=== PATIENT | male | born 1960 | race Caucasian/White ===

== ENCOUNTER 2019-05-21 11:30 | Inpatient (IN) | payer MEDICARE ==
--- NOTE | 2019-05-21 12:10 | HP ---
SUPERVISING PHYSICIAN: King Tillman M.D. CHIEF COMPLAINT: Right sided facial pain. HISTORY OF PRESENT ILLNESS: This is a 58 year-old male patient that had some swelling and pain in the right jaw that started about 7 to 8 days ago. He also had some fever in that jaw during the early days of that jaw pain. On the he went to the Emergency Room and was found to have a swollen parotid gland. His CT showed a cystic versus solid benign or malignant lesion in the right parotid gland. The patient was informed and instructed to see his regular doctor to followup for fine needle aspiration. He went to see Nazanin Medina at [facility] today and his symptoms had worsened as well as the swelling in that right jaw. He was having a difficult time eating and the pain was radiating down to the right side of his neck and across to his left jaw. Nazanin Medina called me as well as Dr. Jhon Oakes, radiologist, who recommended that he have a fine needle biopsy under ultrasound. I spoke with Dr. Penn, Infectious Diseases physician in [place], and she suggested that the patient should be on at least 72 hours of vancomycin and Unasyn, and that he could be reevaluated after 72 hours of IV antibiotics. He was directly admitted to the hospital. His vital signs on admission showed temperature 98.1 with pulse rate 67, blood pressure 136/85, respiratory rate 20, O2 saturation 96%. WBCs were 5 with hemoglobin 16.6 and hematocrit 49.1. ESR was 3. Coagulation studies were unremarkable. Electrolytes were within normal limits. Serum osmolality was 274.6. Liver enzymes were also unremarkable. Blood cultures were done. A chest x-ray was completed that showed prominent heart without congestive failure. PAST MEDICAL HISTORY: 1. Enlarged prostate. 2. Gastroesophageal reflux disease. 3. Chronic chest pain on Ranexa. 4. Hyperlipidemia. 5. Hypertension. 6. 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 PAST SURGICAL HISTORY: 1. Right ankle surgery. 2. Carpal tunnel surgery. 3. Bilateral hand surgery. 4. Shoulder/neck surgery times 2. 5. Hernia surgery at 3 year old. 6. [place] teeth extraction. 7. Cardiac stent in 2016. 8. Two skin lesion removals. OUTPATIENT MEDICATIONS: 1. Amlodipine. 2. Low dose aspirin. 3. Atorvastatin. 4. B complex vitamins. 5. Carvedilol. 6. Duloxetine. 7. Famotidine. 8. Lisinopril. 9. Melatonin. 10. Myrbetriq. 11. Ranexa. ALLERGIES: NO KNOWN ALLERGIES SOCIAL HISTORY: He moved to [place] about 3 months ago. He is living in a hotel room at the [facility]. He recently moved from [place], [place] where his daughter lives. He has been there for 2 years. He denies any tobacco, ETOH or illicit drug use. REVIEW OF SYSTEMS: GENERAL: Positive for fever and fatigue. Negative for weight changes. HEENT: Negative for vision changes or sore throat. See the History of Present Illness. RESPIRATORY: Negative for shortness of breath, coughing, wheezing. CARDIAC: Negative for chest pain, palpitations or tachycardia. GASTROINTESTINAL: Positive for nausea. Negative for vomiting, constipation or diarrhea. GENITOURINARY: Negative for hematuria, dysuria or polyuria. SKIN: Negative for lesions or rashes. NEUROLOGIC: Positive for headache and dizziness. Negative for seizures. PHYSICAL EXAMINATION: VITAL SIGNS: Temperature 98.2, heart rate 71, blood pressure 142/70, respiratory rate 22, O2 sat 96% on room air. GENERAL: This is a 58 year-old male patient who is lying in his hospital bed. He is in no acute distress. HEENT: Normocephalic and atraumatic. His right jaw is warm to touch as well as tender to palpation. It is edematous and erythematous. NECK: Supple without mass. It is tender to palpation on the right lateral neck and he does have some lymphadenopathy. RESPIRATORY: Essentially clear to auscultation bilaterally. CHEST: There is equal rise and fall of the chest with inspiration and expiration. CARDIOVASCULAR: Regular rate and rhythm. GASTROINTESTINAL: Abdomen is soft, nondistended, non-tender. Bowel sounds are positive. EXTREMITIES: No clubbing, cyanosis or edema. NEUROLOGIC: He is awake, alert and oriented times three. Cranial nerves II-XII are grossly intact. SKIN: Warm and dry. LYMPHATICS: Right anterior cervical lymphadenopathy. LABORATORY: Labs and films are as per the History of Present Illness. ASSESSMENT: 1. Right parotitis concerning for cystic versus benign versus malignant lesion of the right parotid gland. 2. Gastroesophageal reflux disease. 3. Chronic chest pain on Ranexa. 4. Hypertension. 5. History of arteriovenous malformation 10 years ago with stroke-like symptoms resulting in fdc hospitalization and resulting disability. 6. Hyperlipidemia. PLAN: I have admitted the patient to the hospital. I have initiated the Unasyn and vancomycin per Pharmacy protocol. I have also put him on a PPI for ulcer prophylaxis and Lovenox for DVT prophylaxis. He is scheduled for a fine needle biopsy per Dr. Jhon Oakes tomorrow. I will make him NPO overnight. Will have lab in the morning and I will also get his home medications restarted. Will continue his IV antibiotics for 72 hours and at that time will followup with Dr. Penn to see if any further antibiotics are needed or what oral medications he should go home with, especially if he clinically improves. Will continue to monitor closely and follow as needed. #[id number] [facility]
[2019-05-21] MEDS ORDERED: ACETAMINOPHEN 325 MG TAB PO PRN (12:20)
[2019-05-21] MEDS ORDERED: SODIUM CHLORIDE 0.9% (FLUSH) 10 ML SYG IV PRN (12:20)
[2019-05-21] MEDS ORDERED: ALBUTEROL SULFATE 2.5 MG/3 ML VIAL NEB PRN (12:20)
[2019-05-21] MEDS ORDERED: DEXTROSE 50% 25 GM/50 ML SYG IV PRN (12:26)
[2019-05-21] MEDS ORDERED: GLUCAGON INJ 1 MG VIAL SUBCU PRN (12:26)
--- NOTE | 2019-05-21 13:27 | RAD ---
EXAM DESCRIPTION: Chest,2 Views CLINICAL HISTORY: copd COMPARISON: None TECHNIQUE: PA/lateral FINDINGS: There is no acute appearing cardiac or pulmonary abnormality. Heart size is prominent with normal pulmonary vascularity. No pleural effusion or pneumothorax. Lungs are clear with no consolidating infiltrate. Lateral view shows intact sternum and spurring in the T-spine. IMPRESSION: Prominent heart without congestive failure Electronically signed by: Arsen Reinoso MD 05/21/2019 1:25 PM CDT
[2019-05-21] MEDS: IV SET AND CAP CHANGE INJ INJ SCH (14:59)
[2019-05-21] MEDS: IPRATROPIUM/ALBUTEROL 3 ML VIAL INH SCH ×2 (16:20→20:32)
[2019-05-21] MEDS ORDERED: INSULIN LISPRO 100 UNITS/ML PEN SUBCU SCH (16:30)
[2019-05-21] MEDS: ENOXAPARIN SODIUM 40 MG/0.4 ML SYG SUBCU SCH (17:03)
[2019-05-21] MEDS ORDERED: VANCOMYCIN PER PHARMACY INJ SCH (17:30)
[2019-05-21] MEDS ORDERED: MELATONIN 3 MG TAB PO PRN (17:51)
[2019-05-21] MEDS ORDERED: AMPICILLIN & SULBACTAM SODIUM 3 GM VIAL ONE ×2 (18:27→19:58)
[2019-05-21] MEDS: AMPICILLIN & SULBACTAM SODIUM 3 GM in SODIUM CHL 0.9% 100ML MINI-BAG 100 ML IVPB SCH ×2 (18:33→23:08)
[2019-05-21] MEDS ORDERED: CARVEDILOL 12.5 MG TAB ONE (19:56)
[2019-05-21] MEDS ORDERED: RANOLAZINE 500 MG TAB PO ONE (19:56)
[2019-05-21] MEDS ORDERED: ATORVASTATIN 20 MG TAB PO ONE (19:56)
[2019-05-21] MEDS ORDERED: SODIUM CHL 0.9% 100ML MINI-BAG 100 ML IVPB ONE (19:57)
[2019-05-21] MEDS ORDERED: PANTOPRAZOLE SODIUM IV 40 MG VIAL ONE (20:00)
[2019-05-21] MEDS: RANEXA 1000 MG PO SCH (20:23)
[2019-05-21] MEDS: SODIUM CHLORIDE 0.9% (FLUSH) 10 ML SYG IV SCH (20:24)
[2019-05-21] MEDS: HYDROcodone 5MG/APAP 325MG 1 EA TAB PO PRN (20:25)
[2019-05-21] MEDS ORDERED: CARVEDILOL 12.5 MG PO SCH (21:00)
[2019-05-21] MEDS ORDERED: ATORVASTATIN CALCIUM 80 MG PO SCH (21:00)
[2019-05-22] MEDS ORDERED: SODIUM CHL 0.9% 100ML MINI-BAG 100 ML IVPB ONE ×4 (01:00→20:01)
[2019-05-22] MEDS ORDERED: AMPICILLIN & SULBACTAM SODIUM 3 GM VIAL ONE ×4 (01:00→20:02)
[2019-05-22] MEDS: AMPICILLIN & SULBACTAM SODIUM 3 GM in SODIUM CHL 0.9% 100ML MINI-BAG 100 ML IVPB SCH ×4 (05:13→23:10)
[2019-05-22] MEDS: PANTOPRAZOLE SODIUM IV 40 MG VIAL IV SCH (06:13)
[2019-05-22] MEDS: IPRATROPIUM/ALBUTEROL 3 ML VIAL INH SCH ×2 (07:31→22:51)
[2019-05-22] MEDS ORDERED: VANCOMYCIN HCL INJ 1,000 MG VIAL IVPB ONE ×2 (08:44→20:02)
[2019-05-22] MEDS ORDERED: SODIUM CHLORIDE 0.9% 500ML 500 ML ONE ×2 (08:44→20:01)
[2019-05-22] MEDS: VANCOMYCIN HCL INJ 1,750 MG in SODIUM CHLORIDE 0.9% 500ML 500 ML IVPB SCH ×2 (08:54→20:28)
[2019-05-22] MEDS: amLODIPine BESYLATE 5 MG TAB PO SCH (11:44)
[2019-05-22] MEDS: CARVEDILOL 12.5 MG TAB PO SCH ×2 (11:44→21:13)
[2019-05-22] MEDS: LISINOPRIL 10 MG TAB PO SCH (11:44)
[2019-05-22] MEDS: ASPIRIN (ENTERIC COATED) 81 MG TAB PO SCH (11:44)
[2019-05-22] MEDS: DULoxetine HCL 30 MG CAP PO SCH (11:44)
[2019-05-22] MEDS: RANEXA 1000 MG PO SCH ×2 (11:45→21:14)
[2019-05-22] MEDS: MYRBETRIQ 50 MG PO SCH (11:45)
[2019-05-22] MEDS: SODIUM CHLORIDE 0.9% (FLUSH) 10 ML SYG IV SCH ×2 (11:45→21:14)
[2019-05-22] MEDS ORDERED: KCL 20MEQ/0.45% NS 1,000 ML IVS ONE (13:21)
[2019-05-22] MEDS: HYDROcodone 5MG/APAP 325MG 1 EA TAB PO PRN (13:32)
--- NOTE | 2019-05-22 16:13 | US ---
EXAM DESCRIPTION: Parotid: ULTRASOUND. CLINICAL HISTORY: 58 years Male parotid gland abscess right. Scanning for ultrasound guided drainage. COMPARISON: CT scan of the neck with IV contrast 05/16/2019. TECHNIQUE: Transcutaneous scanning: Bello-scale and Doppler modes.. Technically difficult study due to anatomy of right mandible and right external ear FINDINGS: Right parotid gland is visualized and heterogeneous. The mass was not visualized scanning anterior to the ear. Scanning posterior to the inferior, a hypoechoic mass is noted on the posterior aspect of the parotid gland measuring 6.5 x 3.8 mm with internal echoes. Posterior acoustic enhancement. Nonvascular. IMPRESSION: Possible abscess versus complicated cyst posterior aspect the right parotid gland. Nonvascular. Smaller compared to the posterior right parotid gland mass seen on the CT scan. The size and position prevents technically adequate aspiration or drainage. The CT scan will be repeated in 3 days after a course of IV antibiotics. ` COMMUNICATION: The critical value was discussed directly by phone with NAOMY Adams at approximately 1115 hours, on 05/22/2019. Electronically signed by: Jhon Oakes MD 05/22/2019 4:10 PM CDT
[2019-05-22] MEDS: ENOXAPARIN SODIUM 40 MG/0.4 ML SYG SUBCU SCH (18:42)
--- NOTE | 2019-05-22 19:17 | PN ---
DATE: 05/22/19 SUPERVISING PHYSICIAN: King Tillman M.D. SUBJECTIVE: The patient is sitting up in bed. He has just returned from his ultrasound. We discussed his plan of care that he would be in the hospital until Tuesday morning for IV antibiotics as recommended by Dr. Penn, Infectious Diseases in [place]. He continues to have some pain in that right jaw and I have encouraged him to ask for his pain medications. Otherwise he has no complaints of nausea, vomiting, diarrhea, constipation, shortness of breath or chest pain. OBJECTIVE: VITAL SIGNS: Temperature 98, heart rate 58, blood pressure 148/87, respiratory rate 16, O2 sat 94% on room air. HEENT: The right jaw continues to be very warm to touch as well as tender to palpation. It is erythematous and edematous. It is mostly unchanged since yesterday except the tender seems to be improved. RESPIRATORY: Essentially clear to auscultation bilaterally. CARDIAC: Regular rate and rhythm. GASTROINTESTINAL: Abdomen is soft, nondistended, non- tender. Bowel sounds are positive. NEUROLOGIC: He is awake, alert and oriented times three. LABORATORY: WBCs are 4.2, hemoglobin 16.5, hematocrit 48.9. Electrolytes are within normal limits. Liver panel is unremarkable. Preliminary blood cultures show no growth. Parotid ultrasound: They were unable to do the fine needle biopsy, but the sonogram shows possible abscess versus complicated cyst posterior aspect of the right parotid gland. Nonvascular. Smaller compared to the posterior right parotid gland mass seen on CT scan. The size and position prevents technically adequate aspiration or drainage. The CT scan will be repeated in 3 days after a course of IV antibiotics. All other labs and films have been reviewed via the EMR. ASSESSMENT: 1. Right parotitis concerning for cystic versus benign versus malignant lesion of the right parotid gland. 2. Gastroesophageal reflux disease. 3. Chronic chest pain on Ranexa. 4. Hypertension. 5. History of arteriovenous malformation 10 years ago with stroke-like symptoms resulting in intermediate card tender hospitalization and resulting disability. 6. Hyperlipidemia. PLAN: We will continue present supportive care. He will continue with Unasyn and vancomycin as per recommendations by Dr. Penn, Infectious Diseases physician in [place]. She recommended that it be for 72 hours. After speaking with Dr. Oakes, radiologist, we will reevaluate his clinical presentation on [place] morning. After administration of his IV antibiotics, will do a CT of the parotid gland with contrast to determine improvement in addition to his clinical presentation. I will hold on any labs at this time. Will continue to monitor closely and follow as needed. #[id number] [facility]
[2019-05-22] MEDS ORDERED: RANOLAZINE 500 MG TAB PO ONE (20:06)
[2019-05-22] MEDS: ATORVASTATIN 20 MG TAB PO SCH (21:13)
[2019-05-23] MEDS ORDERED: AMPICILLIN & SULBACTAM SODIUM 3 GM VIAL ONE ×4 (03:32→19:00)
[2019-05-23] MEDS ORDERED: SODIUM CHL 0.9% 100ML MINI-BAG 100 ML IVPB ONE ×4 (03:32→18:59)
[2019-05-23] MEDS: AMPICILLIN & SULBACTAM SODIUM 3 GM in SODIUM CHL 0.9% 100ML MINI-BAG 100 ML IVPB SCH ×4 (05:11→22:58)
[2019-05-23] MEDS: PANTOPRAZOLE SODIUM IV 40 MG VIAL IV SCH (06:15)
[2019-05-23] MEDS: IPRATROPIUM/ALBUTEROL 3 ML VIAL INH SCH (07:58)
[2019-05-23] MEDS ORDERED: SODIUM CHLORIDE 0.9% 500ML 0 ML ONE ×2 (08:12→08:20)
[2019-05-23] MEDS ORDERED: VANCOMYCIN HCL INJ 1,000 MG VIAL IVPB ONE ×5 (08:13→19:00)
[2019-05-23] MEDS ORDERED: SODIUM CHLORIDE 0.9% 500ML 500 ML ONE ×3 (08:21→18:59)
[2019-05-23] MEDS: VANCOMYCIN HCL INJ 1,750 MG in SODIUM CHLORIDE 0.9% 500ML 500 ML IVPB SCH ×2 (08:28→20:08)
[2019-05-23] MEDS: LISINOPRIL 10 MG TAB PO SCH (08:30)
[2019-05-23] MEDS: RANOLAZINE 500 MG TAB PO SCH ×2 (08:30→20:08)
[2019-05-23] MEDS: ASPIRIN (ENTERIC COATED) 81 MG TAB PO SCH (08:31)
[2019-05-23] MEDS: MYRBETRIQ 50 MG PO SCH (08:31)
[2019-05-23] MEDS: amLODIPine BESYLATE 5 MG TAB PO SCH (08:31)
[2019-05-23] MEDS: DULoxetine HCL 30 MG CAP PO SCH (08:31)
[2019-05-23] MEDS: CARVEDILOL 12.5 MG TAB PO SCH ×2 (08:31→20:08)
[2019-05-23] MEDS: SODIUM CHLORIDE 0.9% (FLUSH) 10 ML SYG IV SCH ×2 (08:34→20:10)
[2019-05-23] MEDS: HYDROcodone 5MG/APAP 325MG 1 EA TAB PO PRN ×2 (12:01→20:14)
--- NOTE | 2019-05-23 13:55 | PN ---
SUPERVISING PHYSICIAN: King Tillman MD DATE: 05/23/19 SUBJECTIVE: The patient notes he is still having quite a bit of pain. He denied any significant trismus as he was able to open his mouth for exam. He has had no complaints of any shortness of breath or difficulty with respirations. He feels like maybe the swelling has gone down some, but again it is very painful. He does have some nausea and we discussed using some Zofran. He has also started to have a little bit of diarrhea and we discussed starting him on a probiotic. OBJECTIVE: VITAL SIGNS: Temperature 98.3. Pulse 61. Blood pressure 115/71. Respiratory rate 16. Saturation 95% on room air. Weight 117.8 kg. GENERAL: The patient appears to be resting comfortably in no acute distress. He is alert. HEENT: Right jaw is showing some swelling, but today right compared to left is decreased. He does continue to show some mild erythema and tenderness to palpation. Oral mucous membranes are pink, most without any lesions. There is no drainage. CHEST: Lung sounds are clear to auscultation bilaterally. HEART: Regular rate and rhythm. ABDOMEN: Obese, but soft and nontender. Positive bowel sounds. EXTREMITIES: No edema. NEUROLOGIC: Alert and oriented times three. LABORATORY: CBC was not repeated today. Chemistries stable yesterday, so no new labs. RADIOLOGY: No additional radiographic studies. ASSESSMENT: 1. Right parotitis concerning for cystic versus benign versus malignant lesion of the right parotid gland, showing some improvement with parenteral antibiotic. 2. Gastroesophageal reflux disease, stable. 3. Chronic chest pain on Ranexa, with no recurrence of chest pain. 4. Hypertension, stable. 5. 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 6. Hyperlipidemia. PLAN: Based on recommendations from Dr. Penn, we will continue with Unasyn and vancomycin for a total course of 72 hours which will put him complete on Tuesday morning. After final administration of IV antibiotics on Tuesday, the plan is to do a CT of the parotid gland with contrast so any improvement can be determined compared to admission. We will continue to hold labs as they have been fairly stable. We will continue to monitor and treat as needed until he can transition to outpatient management. #[id number] [facility]
[2019-05-23] MEDS: ENOXAPARIN SODIUM 40 MG/0.4 ML SYG SUBCU SCH (16:51)
[2019-05-23] MEDS: ATORVASTATIN 20 MG TAB PO SCH (20:08)
[2019-05-24] MEDS ORDERED: SODIUM CHL 0.9% 100ML MINI-BAG 100 ML IVPB ONE ×4 (05:07→19:13)
[2019-05-24] MEDS ORDERED: AMPICILLIN & SULBACTAM SODIUM 3 GM VIAL ONE ×4 (05:08→19:14)
[2019-05-24] MEDS: AMPICILLIN & SULBACTAM SODIUM 3 GM in SODIUM CHL 0.9% 100ML MINI-BAG 100 ML IVPB SCH ×4 (05:25→23:22)
[2019-05-24] MEDS: PANTOPRAZOLE SODIUM IV 40 MG VIAL IV SCH (06:31)
[2019-05-24] MEDS ORDERED: SODIUM CHLORIDE 0.9% 500ML 500 ML ONE ×2 (09:19→19:13)
[2019-05-24] MEDS ORDERED: VANCOMYCIN HCL INJ 1,000 MG VIAL IVPB ONE ×2 (09:20→19:15)
[2019-05-24] MEDS: CARVEDILOL 12.5 MG TAB PO SCH ×2 (09:39→20:31)
[2019-05-24] MEDS: RANOLAZINE 500 MG TAB PO SCH ×2 (09:39→20:30)
[2019-05-24] MEDS: LISINOPRIL 10 MG TAB PO SCH (09:39)
[2019-05-24] MEDS: ASPIRIN (ENTERIC COATED) 81 MG TAB PO SCH (09:39)
[2019-05-24] MEDS: DULoxetine HCL 30 MG CAP PO SCH (09:39)
[2019-05-24] MEDS: BIFIDOBACTERIUM INFANTIS 4 MG CAP PO SCH (09:39)
[2019-05-24] MEDS: amLODIPine BESYLATE 5 MG TAB PO SCH (09:39)
[2019-05-24] MEDS: MYRBETRIQ 50 MG PO SCH (09:40)
[2019-05-24] MEDS: VANCOMYCIN HCL INJ 1,750 MG in SODIUM CHLORIDE 0.9% 500ML 500 ML IVPB SCH ×2 (09:40→20:25)
[2019-05-24] MEDS: SODIUM CHLORIDE 0.9% (FLUSH) 10 ML SYG IV SCH ×2 (10:16→20:32)
[2019-05-24] MEDS: HYDROcodone 5MG/APAP 325MG 1 EA TAB PO PRN (10:56)
[2019-05-24] MEDS: IV SET AND CAP CHANGE INJ INJ SCH (12:29)
--- NOTE | 2019-05-24 14:04 | PN ---
SUPERVISING PHYSICIAN: King Tillman MD DATE: 05/24/19 SUBJECTIVE: The patient feels that his pain is a little bit less, but it is still certainly present. He did have a little issue this morning with some shortness of breath and wheezing. I have encouraged to take his p.r.n. breathing treatments and if it continues, we will need to schedule these. He has had no further complaints, no nausea or vomiting. OBJECTIVE: VITAL SIGNS: Temperature 97.8. Pulse 58. Blood pressure 117/78. Respiratory rate 14. Saturation 96% on room air. HEENT: Left and right side parotid gland regions show significant decrease in edema although they continue to be very painful on palpation. There is no obvious erythema. CHEST: Lung sounds are clear to auscultation. HEART: Regular rate and rhythm. ABDOMEN: Soft and nontender. Positive bowel sounds. EXTREMITIES: No edema. NEUROLOGIC: Alert and oriented times three. LABORATORY: No additional laboratory studies were repeated today, they have been stable. ASSESSMENT: 1. Right parotitis concerning for cystic versus benign versus malignant lesion of the right parotid gland, showing some improvement with parenteral antibiotic. 2. Gastroesophageal reflux disease, stable. 3. Chronic chest pain on Ranexa, with no recurrence of chest pain. 4. Hypertension, stable. 5. 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 6. Hyperlipidemia. PLAN: We will continue with current plan of care with antibiotics including Unasyn and vancomycin. It is anticipated that tomorrow we will be able to transition to oral medications, but we will do continued imaging including CT to further rule out any abscess formations or need for further imaging. I have encouraged him to utilize his breathing treatments. He is still using incentive spirometry. He remains on DVT prophylaxis. Until we can transition to oral medications and outpatient management, we will continue to monitor and treat as needed. #[id number] [facility]
[2019-05-24] MEDS: ENOXAPARIN SODIUM 40 MG/0.4 ML SYG SUBCU SCH (16:52)
[2019-05-24] MEDS: ATORVASTATIN 20 MG TAB PO SCH (20:31)
[2019-05-25] MEDS ORDERED: AMPICILLIN & SULBACTAM SODIUM 3 GM VIAL ONE ×2 (01:58→11:46)
[2019-05-25] MEDS ORDERED: SODIUM CHL 0.9% 100ML MINI-BAG 100 ML IVPB ONE ×2 (01:58→11:46)
[2019-05-25] MEDS: AMPICILLIN & SULBACTAM SODIUM 3 GM in SODIUM CHL 0.9% 100ML MINI-BAG 100 ML IVPB SCH ×2 (05:25→11:54)
[2019-05-25] MEDS: PANTOPRAZOLE SODIUM IV 40 MG VIAL IV SCH (06:12)
[2019-05-25] MEDS ORDERED: VANCOMYCIN HCL INJ 1,000 MG VIAL IVPB ONE (08:13)
[2019-05-25] MEDS ORDERED: SODIUM CHLORIDE 0.9% 500ML 500 ML ONE (08:13)
--- NOTE | 2019-05-25 08:41 | CT ---
EXAM DESCRIPTION: Soft Tissue Neck w/Contrast: Computed Tomography CLINICAL HISTORY: 58 years Male, parotitis. Possible abscess. Hospitalized the past 4 days with IV antibiotics. COMPARISON: Maxillofacial CT scan without and with IV contrast 05/16/2019. TECHNIQUE: Spiral, axial 2.5 x 2.5 mm scans through the neck soft tissues after infusion of IV contrast. Sagittal and coronal coronal and sagittal 2.0 mm reconstructions. No adverse reactions. Total Exam DLP: 407.75 mGy-cm. This exam was performed according to our departmental CT dose-optimization program which includes automated exposure control, adjustment of the mA and/or kV according to patient size and/or use of iterative reconstruction technique; to reduce radiation dose to as low as reasonably achievable (ALARA). FINDINGS: Again noted is a slightly irregular low-density poorly enhancing mass, with minimally thickened and enhancing holloway, abutting the posterior-superior aspect of the right parotid gland, inferior to the right external ear canal, posterior to the angle of the right mandible, and anterior to the right mastoid air cells. Dimensions are 1.6 x 1.4 x 1.5 cm. This may represent an abscess, but has slightly decreased in size since the prior study. The remainder of the parotid gland is unremarkable. No fluid in the mastoid air cells and the cortex is intact. Cortex also intact of the posterior mandible.. External ear canal appears symmetric compared to the left canal. Other salivary glands included on the study unremarkable. Sublingual glands are partially obscured due to beam hardening artifact from the maxillary teeth. Bilateral tonsillar hypertrophy again noted in the superior oropharynx with calcifications. Minimal narrowing of the oropharynx. No effacement of the nasopharynx or hypopharynx. Symmetric narrowing of the junction of the larynx and glottis. Subcutaneous adipose tissue is unremarkable. No abnormal enhancement or soft tissue masses. No adenopathy in the parapharyngeal spaces, carotid spaces, or paracervical spaces. Uniform enhancement of the thyroid gland. No adjacent soft tissue masses or adenopathy. Included lung slater are negative. No adenopathy in the superior mediastinum. Large bridging osteophytes posterior to C2 and C3 encroaching on the cord with some canal stenosis. Smaller posterior bridging osteophytes somewhat fragmented at C3-C4 but also impressing on the ventral cord with canal stenosis. No foraminal stenosis. Spondylosis and disc space narrowing C4-C5, C5-C6, and C6-C7. IMPRESSION: 1. 1.6 x 1.5 x 1.4 cm mass, most likely abscess, posterior superior right parotid gland. Slightly smaller since the prior study indicating response to antibiotics. Consider follow-up CT scan with IV contrast in 4-5 days, depending on patient clinical presentation. Also consider follow-up ultrasound evaluation if percutaneous drainage considered. 2. Hypertrophied tonsils with calcifications in the oropharynx. Stable since the prior study. Otherwise remainder of the neck soft tissues unremarkable. 3. Hypertrophic bridging osteophytes posteriorly in the canal at C2-3 and C3-4 with canal stenosis and possible cord compression. Correlate with clinical findings. Electronically signed by: Jhon Oakes MD 05/25/2019 8:39 AM CDT
[2019-05-25] MEDS: amLODIPine BESYLATE 5 MG TAB PO SCH (08:58)
[2019-05-25] MEDS: ASPIRIN (ENTERIC COATED) 81 MG TAB PO SCH (08:58)
[2019-05-25] MEDS: DULoxetine HCL 30 MG CAP PO SCH (08:58)
[2019-05-25] MEDS: RANOLAZINE 500 MG TAB PO SCH (08:58)
[2019-05-25] MEDS: MYRBETRIQ 50 MG PO SCH (08:58)
[2019-05-25] MEDS: CARVEDILOL 12.5 MG TAB PO SCH (08:58)
[2019-05-25] MEDS: LISINOPRIL 10 MG TAB PO SCH (08:58)
[2019-05-25] MEDS: BIFIDOBACTERIUM INFANTIS 4 MG CAP PO SCH (08:58)
[2019-05-25] MEDS: VANCOMYCIN HCL INJ 1,750 MG in SODIUM CHLORIDE 0.9% 500ML 500 ML IVPB SCH (08:59)
[2019-05-25] MEDS: SODIUM CHLORIDE 0.9% (FLUSH) 10 ML SYG IV SCH (09:00)
[2019-05-25 11:48] VITALS: BP 142/81; TEMP 97.6; O2SAT 97
--- NOTE | 2019-05-29 12:02 | DS ---
SUPERVISING PHYSICIAN: King Tillman MD DISCHARGE DIAGNOSIS: 1. Right parotitis concerning for cystic versus benign versus malignant lesion of the right parotid gland, showing some improvement with parenteral antibiotic. 2. Gastroesophageal reflux disease, stable. 3. Chronic chest pain on Ranexa, with no recurrence of chest pain. 4. Hypertension, stable. 5. 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 6. Hyperlipidemia. HISTORY OF PRESENT ILLNESS: This is a 58-year-old male patient who had some swelling and pain in the right jaw that started about a week prior to his admission to the hospital. He also had some fever during the early days of that jaw pain and now it is localized to warmth at the right jaw. On the , he went to the Emergency Room and was found to have a swollen parotid gland. His CT showed a cystic versus solid benign or malignant lesion in the right parotid gland. The patient was informed and instructed to see his regular doctor to followup for fine needle aspiration. As per up to date guidelines, he was not treated with any antibiotics initially. He went to see Mickie Medina at [facility] on the date of admission and his symptoms had worsened as well as the swelling in that right jaw. He was also having a very difficult time eating and the pain was radiating down to the right side of his neck and across to his left jaw. Mickie Medina called me as well as Dr. Jhon Oakes, radiologist, who recommended that he have a fine needle biopsy under ultrasound. I spoke with Dr. Penn, Infectious Diseases physician in [place], and she suggested that the patient should be on at least 72 hours of IV antibiotics to include vancomycin and Unasyn. After 72 hours of IV antibiotic therapy, he could be reevaluated with a CT scan. She also felt that the fine needle biopsy was important to complete to help with diagnoses. He was directly admitted to the hospital. On initial exam, his vital signs showed temperature 98.1 with pulse rate 67, blood pressure 136/85, respiratory rate 20, O2 saturation 96%. WBCs were 5 with hemoglobin 16.6 and hematocrit 49.1. ESR was 3. Coagulation studies were unremarkable. Electrolytes were within normal limits. Serum osmolality was 274.6. Liver enzymes were also unremarkable. Blood cultures were done. A chest x-ray was completed that showed prominent heart without congestive failure. HOSPITAL COURSE: Unasyn and vancomycin were initiated per Pharmacy protocol. He was also put on a proton pump inhibitor for ulcer prophylaxis as well as Lovenox for DVT prophylaxis. Dr. Jhon Oakes, radiologist, scheduled him for a final needle biopsy the following morning. He was made NPO overnight. Also, he had labs drawn and his home medications were restarted. They were unable to do the fine needle biopsy under ultrasound, but Dr. Oakes, the radiologist, felt like we could reevaluate his clinical presentation after 72 hours of IV antibiotic therapy and we would do a CT of the parotid gland with contrast to determine improvement. Over the next few days, he responded well to his antibiotics. There was much less pain and the swelling diminished although it continued as of this morning. A CT of his neck was done to evaluate the parotid gland and I spoke with Dr. Penn. I gave her his clinical presentation as well as the results of this soft tissue neck CT and she recommended he be continued on outpatient Invanz until she could see him in clinic on 06/04/19. The patient will be discharged home, but he is to continue his IV antibiotic therapy as an outpatient until his appointment with Dr. Penn. LABORATORY: CBC remained unremarkable on followup with CMP that was also unremarkable. Preliminary blood cultures showed no growth after 3 days. RADIOLOGY: Parotid ultrasound showed possible abscess versus complicated cyst posterior aspect of the right parotid gland, nonvascular, smaller compared to the posterior right parotid gland last seen on the CT scan previously. The size and position prevents technically adequate aspiration or drainage and the CT scan will be repeated in 3 days after course of antibiotics. His soft tissue neck CT shows 1) 1.6 x 1.5 x 1.4 cm mass, most likely abscess, posterior superior right parotid gland. Slightly smaller since the prior study indicating response to antibiotics. Consider follow-up CT scan with IV contrast in 4-5 days, depending on patient clinical presentation. Also consider follow-up ultrasound evaluation if percutaneous drainage considered. 2) Hypertrophied tonsils with calcifications in the oropharynx. Stable since the prior study. Otherwise remainder of the neck soft tissues unremarkable. 3) Hypertrophic bridging osteophytes posteriorly in the canal at C2-3 and C3-4 with canal stenosis and possible cord compression. Correlate with clinical findings. DISCHARGE PLAN: the patient will be discharged home in stable condition. He is to return tomorrow to the hospital for Invanz IV antibiotic therapy once daily. He is to resume his previous diet as well as his previous medications. He was out of his Myrbetriq, so I ordered him a 30-day supply of that. He is also to take Align twice daily. Dr. Penn said he will continue on possibly 3 weeks of IV antibiotic therapy, but she would reevaluate him in clinic on 06/04/19. He is to followup with Mickie Medina within 1 to 2 weeks. He is to return to the hospital or followup with Mickie Medina for any problems or complications. DISCHARGE MEDICATIONS: 1. Amlodipine. 2. Aspirin. 3. Atorvastatin. 4. B Complex. 5. Carvedilol. 6. Duloxetine. 7. Famotidine. 8. Lisinopril. 9. Melatonin. 10. Myrbetriq. 11. Ranexa. 12. Align. 13. Invanz. #[id number] [facility]
== END 2019-05-25 13:25 | disposition home or self-care (01) | DRG 154 ==
LOC: EDBD 11:30 → MS 11:30 → MERGE 11:30
PROVIDERS: ADMIT Family Medicine; ATTEND Nurse Practitioner Acute Care
PROC: BW2F1ZZ Computerized Tomography (CT Scan) of Neck using Low Osmolar Contrast (ICD-10-PCS; principal; 2019-05-25)
DX: K11.20 Sialoadenitis, unspecified (principal); Q28.2 Arteriovenous malformation of cerebral vessels; K11.3 Abscess of salivary gland; K21.9 Gastro-esophageal reflux disease without esophagitis; G89.29 Other chronic pain; R07.9 Chest pain, unspecified; I10 Essential (primary) hypertension; E78.5 Hyperlipidemia, unspecified; N40.0 Benign prostatic hyperplasia without lower urinary tract symptoms; E66.9 Obesity, unspecified; Z95.5 Presence of coronary angioplasty implant and graft; Z79.82 Long term (current) use of aspirin; Z79.899 Other long term (current) drug therapy